=== PATIENT | male | born 1995 | race Caucasian/White ===

== ENCOUNTER 2020-04-14 18:47 | Emergency (ER) | payer OTHER ==
--- NOTE | 2020-04-14 19:57 | Event Note ---
ED Screening Note Date of service: 04/14/20 Time: 19:56 ED Screening Note: Patient complains of chest pain times today Describes it as burning Denies history of GERD or alcohol use This initial assessment/diagnostic orders/clinical plan/treatment(s) is/are subject to change based on patients health status, clinical progression and re- assessment by fellow clinical providers in the ED. Further treatment and workup at subsequent clinical providers discretion. Patient/guardian urged not to elope from the ED as their condition may be serious if not clinically assessed and managed. Initial orders include: Labs Chest x-ray EKG
[2020-04-14 20:31] LABS: Basophils % (Auto) 0.3 % (0.0-1.8); Eosinophils # (Auto) 0.1 K/mm3 (0.0-0.4); Eosinophils % (Auto) 1.1 % (0.0-4.3); Hematocrit 44.1 % (35.5-45.6); Hemoglobin 15.1 gm/dl (11.8-15.2); Lymphocytes # (Auto) 1.2 K/mm3 (1.2-5.4); Lymphocytes % (Auto) 26.2 % (13.4-35.0); Mean Corpuscular HGB Conc 34 % (32-34); Mean Corpuscular Volume 88 fl (84-94); Monocytes # (Auto) 0.3 K/mm3 (0.0-0.8); Monocytes % (Auto) 7.6 % (0.0-7.3); Platelet Count 224 K/mm3 (140-440); Red Blood Count 5.03 M/mm3 (3.65-5.03); Red Cell Distribution Width 12.4 % (13.2-15.2)
[2020-04-14 20:45] LABS: Alanine Aminotransferase 21 units/L (7-56); Albumin 4.9 g/dL (3.9-5); Blood Urea Nitrogen 10 mg/dL (9-20); Calcium 9.5 mg/dL (8.4-10.2); Hemolysis Index 4
[2020-04-14 20:48] LABS: BUN/Creatinine Ratio 14
--- NOTE | 2020-04-14 21:25 | XRay Report ---
CHEST 2 VIEWS INDICATION / CLINICAL INFORMATION: chest pain. COMPARISON: None available. FINDINGS: SUPPORT DEVICES: None. HEART / MEDIASTINUM: No significant abnormality. LUNGS / PLEURA: No significant pulmonary or pleural abnormality. No pneumothorax. ADDITIONAL FINDINGS: No significant additional findings. IMPRESSION: No significant abnormality Signer Name: Joe Mills MD FACR Signed: 04/14/2020 9:21 PM Workstation Name: [id number]
[2020-04-15] MEDS ORDERED: LIDOCAINE VISCOUS 2% 15 ML ORAL LIQD PO ONE (00:36)
[2020-04-15] MEDS ORDERED: FAMOTIDINE 20 MG TAB PO ONE (00:36)
[2020-04-15] MEDS ORDERED: ALUM-MAG HYDROXIDE-SIMETHICONE 200-200-20MG/5ML ORAL LIQD 30 ML PO ONE (00:36)
--- NOTE | 2020-04-15 00:52 | Emergency Department Report ---
ED Abdominal Pain HPI - General Chief Complaint: Chest Pain Stated Complaint: HEARTBURN Time Seen by Provider: 04/14/20 19:55 Source: patient Mode of arrival: Ambulatory Limitations: No Limitations - History of Present Illness Initial Comments: Patient is a 24-year-old [place]ones[place] male with no past medical history presents to the ED with complaint of acute onset persistent epigastric pain that radiates with his substernal chest with a burning sensation for the last 2 days after eating a particular meal. Patient states that the pain and the discomfort has gotten worse especially in the last 12 hours with food intake. Patient denies nausea, vomiting, shortness of breath, dizziness, syncope, hemoptysis, cough, diarrhea, dysuria, urinary frequency and urgency, hematemesis, hematochezia, fever and chills, headache or neck pain and diaphoresis. MD Complaint: abdominal pain (epigastric pain), other (substernal chest pain, burning sensation) -: Sudden, days(s) (2) Location: epigastric Radiation: chest (substernal chest ) Migration to: no migration Severity scale (0 -10): 6 Quality: dull, burning Consistency: constant Improves With: nothing Worsens With: eating Associated Symptoms: denies other symptoms. denies: nausea, vomiting, diarrhea, fever, chills, dysuria, hematemesis, hematochezia, melena, hematuria, anorexia, syncope, other - Related Data Previous Rx's Medication Instructions Recorded Last Taken Type Famotidine [Pepcid] 20 mg PO Q12H #60 tablet 04/15/20 Unknown Rx Omeprazole 40 mg PO DAILY #30 capsule. 04/15/20 Unknown Rx Allergies Allergy/AdvReac Type Severity Reaction Status Date / Time No Known Allergies Allergy Unverified 04/14/20 20:28 ED Review of Systems ROS: Stated complaint: HEARTBURN Other details as noted in HPI Constitutional: denies: chills, fever Eyes: denies: eye pain, eye discharge, vision change ENT: denies: ear pain, throat pain Respiratory: denies: cough, shortness of breath, wheezing Cardiovascular: chest pain (substernal burning chest pain). denies: palpitatio ns Endocrine: no symptoms reported Gastrointestinal: abdominal pain (epigastric pain). denies: nausea, vomiting, diarrhea, constipation, hematemesis, melena, hematochezia Genitourinary: denies: urgency, dysuria Musculoskeletal: denies: back pain, joint swelling, arthralgia Skin: denies: rash, lesions Neurological: denies: headache, weakness, paresthesias Psychiatric: denies: anxiety, depression Hematological/Lymphatic: denies: easy bleeding, easy bruising ED Past Medical Hx - Past Medical History Previous Medical History?: No - Surgical History Past Surgical History?: No - Social History Smoking Status: Never Smoker Substance Use Type: None - Medications Home Medications: Home Medications Medication Instructions Recorded Confirmed Last Taken Type Famotidine [Pepcid] 20 mg PO Q12H #60 tablet 04/15/20 Unknown Rx Omeprazole 40 mg PO DAILY #30 capsule. 04/15/20 Unknown Rx ED Physical Exam - General Limitations: No Limitations General appearance: alert, in no apparent distress - Head Head exam: Present: atraumatic, normocephalic, normal inspection - Eye Eye exam: Present: normal appearance, PERRL, EOMI Pupils: Present: normal accommodation - ENT ENT exam: Present: normal exam, normal orophraynx, mucous membranes moist, TM's normal bilaterally, normal external ear exam - Neck Neck exam: Present: normal inspection, full ROM - Respiratory Respiratory exam: Present: normal lung sounds bilaterally. Absent: respiratory distress, wheezes, rales, rhonchi, chest wall tenderness, accessory muscle use, decreased breath sounds, prolonged expiratory - Cardiovascular Cardiovascular Exam: Present: regular rate, normal rhythm, normal heart sounds. Absent: systolic murmur, diastolic murmur, rubs, gallop - GI/Abdominal GI/Abdominal exam: Present: soft, normal bowel sounds. Absent: distended, tenderness, guarding, rebound, hyperactive bowel sounds, hypoactive bowel sounds - Extremities Exam Extremities exam: Present: normal inspection, full ROM, normal capillary refill - Back Exam Back exam: Present: normal inspection, full ROM. Absent: tenderness, CVA tenderness (R), CVA tenderness (L), muscle spasm, paraspinal tenderness, vertebral tenderness - Neurological Exam Neurological exam: Present: alert, oriented X3, CN II-XII intact, normal gait, r eflexes normal - Psychiatric Psychiatric exam: Present: normal affect, normal mood - Skin Skin exam: Present: warm, dry, intact, normal color. Absent: rash ED Course Vital Signs 04/14/20 20:14 Temperature 98.6 F Pulse Rate 89 Respiratory 18 Rate Blood Pressure 129/88 O2 Sat by Pulse 100 Oximetry ED Medical Decision Making - Lab Data Result diagrams: 04/14/20 20:11 04/14/20 20:11 - EKG Data EKG shows normal: sinus rhythm Rate: normal - EKG Data Interpretation: normal EKG 04/15/20 00:58 EKG shows normal sinus rhythm with a ventricular rate of [address] or T wave abnormalities. - Radiology Data Radiology results: report reviewed, image reviewed Findings [facility] [address] [place] [address] XRay Report Signed Patient: MEGAN SAM MR#: [id number] : 1995 Acct:[id number] Age/Sex: 24 / M ADM Date: 04/14/20 Loc: ED Attending Dr: Ordering Physician: TIFFANY BENAVIDES Date of Service: 04/14/20 Procedure(s): XR chest routine 2V Accession Number(s): [id number] cc: TIFFANY BENAVIDES Fluoro Time In Minutes: CHEST 2 VIEWS INDICATION / CLINICAL INFORMATION: chest pain. COMPARISON: None available. FINDINGS: SUPPORT DEVICES: None. HEART / MEDIASTINUM: No significant abnormality. LUNGS / PLEURA: No significant pulmonary or pleural abnormality. No pneumothorax. ADDITIONAL FINDINGS: No significant additional findings. IMPRESSION: No significant abnormality Signer Name: Joe Mills MD FACR Signed: 04/14/2020 9:21 PM Workstation Name: [id number] Transcribed By: MS Dictated By: Joe Mills MD Electronically Authenticated By: Joe Mills MD Signed Date/Time: 04/14/202120 DD/ 20 TD/TT: - Medical Decision Making This is a 24-year-old [place] male with no past medical history presents to the ED with complaint of acute onset persistent epigastric pain that radiates with his substernal chest with a burning sensation for the last 2 days after eating a particular meal. Patient states that the pain and the discomfort has gotten worse especially in the last 12 hours with food intake. In the ED, patient is alert and oriented x3 and is not in distress with normal vital signs. Patient was treated in the ED with antacids. Lab test results were reviewed and are all nonactionable including troponin levels. Chest x-ray shows no acute cardiopulmonary abnormalities or pneumonitis. The EKG shows normal sinus rhythm with a ventricular rate of [address] or T wave abnormalities. On reevaluation, patient pain is well controlled medication. Patient will discharge home on prescriptions of antacids and was advised to follow-up with his primary care physician in 5 to 7 days for reevaluation or return to the ED immediately if symptoms get worse. - Differential Diagnosis GERD; ACS; Gastritis; Gastroenteritis; Pneumonia; Gallstones Critical care attestation.: If time is entered above; I have spent that time in minutes in the direct care of this critically ill patient, excluding procedure time. ED Disposition Clinical Impression: Acute nonspecific chest pain with low risk of coronary artery disease, Acute epigastric pain GERD (gastroesophageal reflux disease) Qualifiers: Esophagitis presence: without esophagitis Qualified Code(s): K21.9 - Gastro- esophageal reflux disease without esophagitis Disposition: TO HOME OR SELFCARE Is pt being admited?: No Does the pt Need Aspirin: No Condition: Stable Instructions: Chest Pain (ED), Nonspecific Chest Pain, Adult, [id number], Heartburn, [id number], Gastroesophageal Reflux Disease, Adult, [id number], Food Choices for Gastroesophageal Reflux Disease, Adult, [id number] Additional Instructions: All lab test results are unremarkable. Your symptoms are likely due to acid reflux or GERD. Therefore take medications with food, drink plenty of fluids and follow-up with your primary care physician in 7 to 10 days for reevaluation or return to the ED immediately if symptoms get worse. Prescriptions: Omeprazole 40 mg PO DAILY #30 capsule. Famotidine [Pepcid] 20 mg PO Q12H #60 tablet Referrals: [facility] [Provider Group] - 3-5 Days JAVIER THORPE MD [Staff Physician] - 3-5 Days Time of Disposition: 00:54 Print Language: SENEGALESE
[2020-04-15 02:40] VITALS: BP 128/84
== END 2020-04-15 01:23 | disposition home or self-care (01) ==
LOC: ED 18:47
DX: K21.9 Gastro-esophageal reflux disease without esophagitis (principal); R10.13 Epigastric pain; R07.89 Other chest pain; Z79.899 Other long term (current) drug therapy
CPT/HCPCS: 36415; 71046; 80053; 84484; 85025; 93005